=== PATIENT | female | born 1935 | race Caucasian/White ===

== ENCOUNTER → 2017-12-26 10:19 | Outpatient (CLI) | payer MEDICARE, SELFPAY ==
--- NOTE | 2017-12-26 10:25 | HPBI_ITS ---
MAMMOGRAPHY - BILATERAL SCREENING REASON FOR EXAM: Female, 82 years old. Routine annual screening examination. PERTINENT HISTORY: Non-contributory. TECHNIQUE: Digital bilateral breast cyril (3D mammographic acquisition) in the CC and MLO projections. 2-D mediolateral oblique (MLO) and craniocaudad (CC) views of both breasts were obtained. CAD: Full Field Digital Mammography with Computer Added Detection was performed. COMPARISON: Comparison is made with prior examination dated June 12, 2016 and April 18, 2015. FINDINGS: Breast Composition: The breasts are almost entirely fatty. There are no dominant masses or suspicious calcifications. Stable scattered bilateral calcifications. No other significant abnormalities are identified. There has been no significant change since the prior study. HPBI/SCREENING MAMM (CAD), BILAT IMPRESSION: Stable bilateral screening mammogram. Yearly follow-up mammogram recommended. (A) ASSESSMENT CATEGORY: BIRADS Category 2: Benign. A letter regarding these results will be sent to the patient by the facility within 30 days. Approximately 10% of breast cancers are not detected by mammography. A normal mammogram should not delay biopsy of a clinically suspicious abnormality. [id number] Electronically Signed: Ranjit Campbell MD at 10:20 EDT Tel [phone], Service support ,
== END ==
PROVIDERS: Family Provider Internal Medicine; PCP Internal Medicine; Visit Provider Internal Medicine
DX: Z12.31 Encounter for screening mammogram for malignant neoplasm of breast (principal)
CPT/HCPCS: 77063; 77067; J2405

== ENCOUNTER → 2018-07-29 13:10 | Outpatient (CLI) | payer MEDICARE, SELFPAY ==
--- NOTE | 2018-07-29 | MISC_PTH ---
PATIENT: NICKI VELAZCO [id number] AGE/SX: 89/F ROOM: RE07/29/[address]: Dr. Pancho Boudreaux DDS : 1935 BED: DIS: SPEC #: [id number] RECD: 07/29/18 13:27 STATUS: VERONICA SANJAY #: [id number] BLANCA: 07/29/18 00:[address]: Pancho Boudreaux DEPT: SURGICAL PATHOLOGY RECD BY: Dixon Knapp ENTERED: 07/29/18 13:28 SP TYPE: MISC DOMENICA DR: Dr. Kallie Osei, DO Tissues: Oral soft tissues, NOS Procedures: Special Stain Group I Surgery Specimen Level IV GMS Stain (control) HEADER OPERATION: Gingiva biopsy PRE-OP DIAGNOSIS: Not noted TISSUE SUBMITTED: Gingiva MICROSCOPIC DIAGNOSIS Gingiva, biopsy: A piece of squamous mucosa with chronic inflammation and pseudoepitheliomatous hyperplasia. Negative for malignancy. Special stain for fungi is negative for organisms; matched control is appropriate. SINDHU:francisco 07/30/18 COMMENT The specimen also shows a minute piece of bone and also focal actinomyces colonization. MICROSCOPIC DESCRIPTION Slides are reviewed. GROSS DESCRIPTION Received in fixative is one container labeled with the patient's name and designated gingiva. The specimen consists of one irregular fragment of ta mucosal tissue that measures 0.4 x 0.4 x 0.2 cm. The specimen is totally submitted in one cassette. / SINDHU:francisco 07/29/18 TC:3 CPT: 22685, 71350
== END ==
PROVIDERS: Family Provider Internal Medicine; PCP Internal Medicine; Referring Provider Dentist Oral and Maxillofacial Surgery; Visit Provider Dentist Oral and Maxillofacial Surgery
DX: K05.10 Chronic gingivitis, plaque induced (principal)
CPT/HCPCS: 88305; 88312

== ENCOUNTER → 2019-11-16 | Outpatient (CLI) | payer MEDICARE, SELFPAY ==
[2019-11-16 12:01] VITALS: BMI 27.6
== END | disposition home or self-care (01) ==
PROVIDERS: PCP Internal Medicine; Referring Provider Nurse Practitioner Women's Health; Visit Provider Nurse Practitioner Women's Health
DX: N76.0 Acute vaginitis (principal)
CPT/HCPCS: 87070; 87205

== ENCOUNTER 2020-03-22 07:01 | Day surgery (SDC) | payer MEDICARE, SELFPAY ==
[2019-11-16 12:01] VITALS: BMI 27.6
--- NOTE | 2020-03-21 10:18 | EKG12_ITS ---
Test Reason : PRE-OP Blood Pressure : / mmHG Vent. Rate : 062 BPM Atrial Rate : 062 BPM P-R Int : 176 ms QRS Dur : 080 ms QT Int : 378 ms P-R-T Axes : 039 -16 033 degrees QTc Int : 383 ms Normal sinus rhythm Septal infarct , age undetermined Inferior infarct , age undetermined Abnormal ECG Confirmed by TRINY GUZMAN, LISE ([id number]), editor & co founder GALA LUA ([id number]) on 03/22/2020 10:08:56 AM Referred By: Madgalene Stewart Confirmed By:LISE AGOSTO MD
[2020-03-21 11:35] LABS: Anion Gap 5 (5-15); BUN 26 mg/dL (7-18); BUN/Creat Ratio 26.6 RATIO (10-20); Calcium,Total 9.6 mg/dL (8.5-10.1); Chloride 106 mmol/L (98-107); Creatinine, Serum 0.98 mg/dL (0.55-1.02); EST Glomerular Filtration Rate 58 mL/min (>60); Est Glom Filt Rate - Afr Amer 70 mL/min (>60); Glucose 91 mg/dL (74-106); Potassium 4.4 mmol/L (3.5-5.1); Sodium Level 139 mmol/L (136-145)
[2020-03-21 11:41] LABS: Hemoglobin 14.8 g/dL (12.0-15.0); Mean Corp Hgb Conc 32.9 g/dL (32-36); Mean Corpuscular Hgb 35.5 pg (27.0-32.0); Mean Corpuscular Volume 107.9 fL (81-99); Mean Platelet Vol. 9.4 fl (6.2-12.0); Platelet Count 270 K/mm3 (150-450); RBC Distribution Width CV 12.7 % (11.6-14.6); RBC Distribution Width SD 50.4 fl (35.1-43.9); Red Blood Count 4.17 M/mm3 (4.2-5.4); White Blood Count 7.5 K/mm3 (4.4-11.0)
[2020-03-22] VITALS (10 sets, daily range): BP systolic 104–133; BP diastolic 57–73; PULSE 51–59; RESP 16; TEMP 35.9–36.5; O2SAT 92–99; BMI 28.0
[2020-03-22] MEDS: Lactated Ringers 1,000 ML 100 ML IV ×2 (07:32→10:40)
[2020-03-22] MEDS: Ciprofloxacin 400 MG/200 ML BAG 200 MG IV (07:32)
[2020-03-22] MEDS: Lubricating Jelly 60 GM Tube 30 GM TOPICAL (08:20)
--- NOTE | 2020-03-22 08:47 | PCM.HP.STD ---
Problem List (1) Erythematous bladder mucosa Status: Acute (2) Urinary tract infection Status: Acute History of Present Illness Date of Admission: 03/22/20 Chief Complaint: urinary tract infection, red bladder The patient is a 84 year old F who was found to have erythematous bladder mucosa on office cystoscopy as part of evaluation for urinary tract infections and incontinence. She now presents for definitive evaluation with bladder biopsy. The risks were discussed, including that of COVID-19. She understands and desires to proceed. Past Medical History Past Medical History (Chronic Problems): Chronic Problems (Last Reviewed 11/16/19 @ 11:43 by Agatha Ji) Fecal incontinence (Chronic) mild 1x monthly Incomplete uterovaginal prolapse (Chronic) size ring with support pessary Medical History: Medical History (Last Reviewed 03/22/20 @ 08:[address] Magdalene Stewart MD) CVA (cerebral vascular accident) I63.9 Allergies cephalexin [From Keflex] Adverse Reaction (Verified 03/22/20 07:13) PT UNSURE OF REACTION codeine Adverse Reaction (Verified 03/22/20 07:13) PT UNSURE OF REACTION morphine Adverse Reaction (Verified 03/22/20 07:13) PT UNSURE OF REACTION states I can't tolerate Home Medications: Ambulatory Orders Medication Instructions Recorded simvastatin 5 mg tablet 5 mg PO QHS 12/29/18 estradiol See Rx Instructions VAGINAL 11/29/19 .COMPLEX #42.5 g Aspirin/Dipyridamole 1 ea PO BID 03/17/20 [Aspirin-Dipyridam ER 25-200 mg] Cholecalciferol (VIT D3) [Vitamin 1,000 unit PO BID 03/17/20 D] Gluc Alcantara/Chondro Alcantara A/Vit C/Mn 1 ea PO BID 03/17/20 [Glucosamine Chondroitin Tab] Multivit-Min/Folic Acid/Biotin 1 ea PO DAILY 03/17/20 [Hair, Skin & Nails Caplet] Multivitamin/Iron/Folic Acid 1 ea PO DAILY 03/17/20 [Centrum Adults Tablet] Eden-3 Fatty Acids/Fish Oil [Fish 1 ea PO DAILY 03/17/20 Oil 1,000 mg Capsule] Surgical History: Surgical History (Last Reviewed 03/22/20 @ 08:[address] Magdalene Stewart MD) History of surgery on arm Z98.890 Smoking Status: Never smoker Tobacco Use: Non-smoker Review of Systems Constitutional: Denies: Anorexia, Chills, Fever Eyes: Denies: Vision Change HEENT: Denies: Visual Changes Cardiovascular: Denies: Chest Pain, Chest Pressure Respiratory: Denies: Cough, Shortness of Breath, Wheezing Gastrointestinal: Denies: Abdominal Pain, Nausea, Vomiting Genitourinary: Reports: Dysuria, Frequency, Incontinence, Urgency Gynecological: Denies: Vaginal bleeding Musculoskeletal: Denies: Muscle pain Skin: Denies: Wounds Neurological: Denies: Difficulty swallowing Endocrine: Denies: Change in Body Habitus VTE Information - Inpt Only VTE Present on Admission: Yes VTE Mechan Device Prophylaxis: SCD's VTE Pharm Prophylaxis ordered?: No Reason prophylaxis not ordered:: Treatment Not Indicated - she will restart her anticoagulation today. Patient Problems: Active and Suspected Problems (Last Reviewed 11/16/19 @ 11:43 by Agatha Ji) Erythematous bladder mucosa (Acute) Urinary tract infection (Acute) - Physical Exam Vitals/I&O's: Vital Signs Temp Pulse Resp BP Pulse Ox 97.5 F L 56 L 16 124/72 H 99 03/22/20 07:25 03/22/20 07:25 03/22/20 07:25 03/22/20 07:25 03/22/20 07:25 Oxygen Delivery Method Room Air Weight: 74.1 kg Body Mass Index (BMI) 28.0 General: Alert, Cooperative, No apparent distress HEENT: Atraumatic, Normocephalic Oral: Moist Mucosa Neck: Supple, Trachea Midline Lungs: Normal air movement Cardiovascular: Regular rate, Regular Rhythm Abdomen: Soft, Non Tender, Non-Distended Extremities: No cyanosis Skin: No rashes Musculoskeletal: No Muscle Wasting Neurological: Cranial nerves II-XII grossly intact, Neuro grossly intact Psych/Mental Status: Normal Affect Laboratory Results 03/21/20 10:08: WBC 7.5, RBC 4.17 L, Hgb 14.8, Hct 45.0, MCV 107.9 H, MCH 35.5 H, MCHC 32.9, RDW Std Deviation 50.4 H, RDW Coeff of Edda 12.7, Plt Count 270, MPV 9.4 03/21/20 10:08: Sodium 139, Potassium 4.4, Chloride 106, Carbon Dioxide 28.0, Anion Gap 5, BUN 26 H, Creatinine 0.98, Est GFR (MDRD) Af Amer 70, Est GFR (MDRD) Non-Af 58 L, BUN/Creatinine Ratio 26.6 H, Glucose 91, Calcium 9.6 03/21/20 10:50: COVID-19 (MARY) Not Detected Current Medications Lactated Ringer's () 1,000 mls @ 100 mls/hr IV .Q10H HAIDER Last Admin: 03/22/20 07:32 Dose: 100 mls/hr Documented by: Assessment/Plan All Active Problems (Last Reviewed 11/16/19 @ 11:43 by Agatha Ji) Erythematous bladder mucosa (Acute) Urinary tract infection (Acute) cystoscopy with bladder biopsy and fulguration Procedure Criteria Procedure Type: Elective Procedure Essential: Yes Criteria Statement: On 12/29/2019 the [facility] ([facility]) Public Order signed by [facility] Director Anel Falcon M.D., regarding the Management of Non-Essential Surgeries and Procedures for the purpose of preserving Personal Protective Equipment (PPE) and critical hospital capacity and resources within [place] went into effect as of 12/30/2019 at 5:00PM. According to the [facility] Public Order: This action will remain in full force and effect until the State of Emergency declared by the Governor no longer exists or the Director of the [facility] rescinds or modifies this Order. This [facility] order stated all non-essential or elective surgeries and procedures that utilize PPE should be delayed unless there is undue risk to the current or future health of a patient. After reviewing the aforementioned [facility] Public Order and the patient's clinical case, I have determined that the scheduled procedure meets the criteria to go forward. Risk to Patient if Procedure Delayed: Risk of rapidly worsening to severe symptoms if delayed - possible malignancy bladder COVID Risk Discussion: The surgeon/proceduralist and patient have discussed in detail the risk of exposure to and/or potential harm posed by the COVID-19 virus with having a surgery/procedure at this time versus the risk of delaying the surgery/procedure. It is not possible to know either the risk of delaying the surgery or procedure or chance of getting an infection with perfect accuracy, but a joint decision was made between the patient and the surgeon/proceduralist to proceed at this time with the scheduled surgery/procedure as indicated on the consent form.
--- NOTE | 2020-03-22 08:50 | BLA_PTH ---
PATIENT: NICKI VELAZCO [place] [facility] [id number] AGE/SX: 84/F ROOM: RE03/22/[address]: Dr. Magdalene Stewart MD : 1935 BED: DIS: 03/22/2020 SPEC #: [id number] RECD: 03/22/20 09:52 STATUS: VERONICA SANJAY #: [id number] BLANCA: 03/22/20 08:[address]: Magdalene Stewart DEPT: SURGICAL PATHOLOGY RECD BY: Mata Christy ENTERED: 03/22/20 10:43 SP TYPE: BLADDER BX OTHR DR: Dr. Kallie Osei DO Tissues: Urinary bladder, NOS Procedures: Surgery Specimen Level IV HEADER OPERATION: Cysto, bladder biopsy with fulguration PRE-OP DIAGNOSIS: Dysuria, urgency, urge incontinence TISSUE SUBMITTED: Bladder biopsy MICROSCOPIC DIAGNOSIS Bladder, biopsy: Fragments of urothelial mucosa with marked acute and chronic inflammation and granulation tissue reaction. Reactive epithelial changes. Negative for malignancy. See comment. SINDHU:francisco 03/23/20 COMMENT A few fragments of smooth muscle is noted, favor muscularis mucosa fragments. Definite detrusor muscle is not seen in the submitted specimen. Epithelium is denuded in the most of the specimen. Correlation with clinical, cystoscopy findings and appropriate follow up are necessary. MICROSCOPIC DESCRIPTION Slides are reviewed. GROSS DESCRIPTION Received in fixative is one container labeled with the patient's name and designated bladder biopsy. The specimen consists of multiple minute fragments of ta-pink soft tissue that in aggregate measure 0.5 x 0.1 x 0.1 cm. The specimen is totally submitted in one cassette. / SINDHU:francisco 03/22/20 TC:2 CPT: 88556
--- NOTE | 2020-03-22 08:55 | PCM.DC.URO ---
Discharge Diet: No Restrictions Discharge Activity: May not drive while taking narcotic pain medications. May resume sexual activity in: 1 week Call your doctor if you observe: Fever of 101 or Higher, Inability to urinate, Inability to have a bowel movement Additional Instructions: restart anticoagulation today. complete bactrim course. ok to take tylenol or ibuprofen for pain. Percocet 4 tablets to take if needed. Allergies/Adverse Reactions: Allergies cephalexin [From Keflex] Adverse Reaction (Verified 03/22/20 07:13) PT UNSURE OF REACTION codeine Adverse Reaction (Verified 03/22/20 07:13) PT UNSURE OF REACTION morphine Adverse Reaction (Verified 03/22/20 07:13) PT UNSURE OF REACTION states I can't tolerate Medications to take at Discharge simvastatin 5 mg tablet 5 mg PO QHS 12/29/18 estradiol See Rx Instructions VAGINAL .COMPLEX #42.5 g 11/29/19 Aspirin/Dipyridamole [Aspirin-Dipyridam ER 25-200 mg] 1 ea PO BID 03/17/20 Cholecalciferol (VIT D3) [Vitamin D3] 1,000 unit PO BID 03/17/20 Gluc Alcantara/Chondro Alcantara A/Vit C/Mn [Glucosamine Chondroitin Tab] 1 ea PO BID 03/17/20 Multivit-Min/Folic Acid/Biotin [Hair, Skin and Nails Caplet] 1 ea PO DAILY 03/17/20 Multivitamin/Iron/Folic Acid [Centrum Adults Tablet] 1 ea PO DAILY 03/17/20 Filion-3 Fatty Acids/Fish Oil [Fish Oil 1,000 mg Capsule] 1 ea PO DAILY 03/17/20 Oxycodone HCl/Acetaminophen [Percocet 5/325] 1 tablet PO Q8H PRN PRN 2 Days #4 tablet 03/22/20 The following prescriptions were given: Oxycodone HCl/Acetaminophen [Percocet 5/325] 1 tablet PO Q8H PRN PRN 2 Days #4 tablet PRN Reason: Pain Transmission Status: Sent to [facility] Primary Care Physician: Kallie Osei DO [Primary Care Provider] - Test Results: Test results from this visit will be discussed in further detail at your follow-up appointment, if applicable. Please Follow Up With: Magdalene Stewart MD When: call for appt to be seen next week. Proposed Discharge Date: 03/22/20
--- NOTE | 2020-03-22 08:58 | OP.PCM_ITS ---
Problem List (1) Erythematous bladder mucosa Status: Acute (2) Urinary tract infection Status: Acute Report of Operation Date of Procedure: 03/22/20 Pre-Operative Diagnosis: Erythema of the bladder mucosa, recurrent urinary tract infections, incontinence Post-Operative Diagnosis: Same Surgery/Procedure Performed:: Cystoscopy with bladder biopsy and fulguration Type of Anesthesia:: General Specimen's removed: Bladder biopsy x3 Description of Procedure: The patient is an 84-year-old female seen in the office for recurrent urinary tract infections, incontinence and was evaluated with a cystoscopy. The cystoscopy in the office showed diffuse erythematous bladder wall. Risks benefits and alternatives were discussed and the patient agreed to proceed with biopsy under anesthesia. COVID-19 risks were discussed as well. The patient understood and decided to proceed. The patient was taken to the operating room and placed on the operating room table. Anesthesia monitored the head, neck, airway, IV access and vital signs throughout the case. Once anesthesia was administered the patient was placed into dorsal lithotomy position and was prepped and draped in usual sterile fashion. A cystourethroscopy was then performed through the urethra. The bladder mucosa remains erythematous as seen in the office. Bilateral ureteral orifices were located on the area of the trigone in correct anatomic position. There were no masses identified and no foreign bodies. There is no trabeculat ion identified. Three biopsies were taken from the posterior bladder wall and these areas were fulgurated for hemostatic control. The patient's bladder was then emptied and the case was terminated. The patient tolerated the procedure well without complication. - Complications None - Admit VTE Documentation VTE Present on Admission: Yes VTE Mechan Device Prophylaxis: SCD's VTE Pharm Prophylaxis ordered?: No Reason prophylaxis not ordered:: Treatment Not Indicated
== END 2020-03-22 11:49 | disposition home or self-care (01) ==
LOC: SDC 07:08 → AC 07:08
PROVIDERS: Anesthesiology; PCP Internal Medicine; Referring Provider Urology; Visit Provider Urology
PROC: 0TBB8ZX Excision of Bladder, Via Natural or Artificial Opening Endoscopic, Diagnostic (ICD-10-PCS; CPT 52204; principal; 2020-03-22 08:40)
DX: N32.89 Other specified disorders of bladder (principal); N39.0 Urinary tract infection, site not specified; E78.00 Pure hypercholesterolemia, unspecified; R15.9 Full incontinence of feces; Z88.5 Allergy status to narcotic agent; Z88.1 Allergy status to other antibiotic agents; Z87.440 Personal history of urinary (tract) infections; Z79.82 Long term (current) use of aspirin; Z11.59 Encounter for screening for other viral diseases; Z86.73 Personal history of transient ischemic attack (TIA), and cerebral infarction without residual deficits
CPT/HCPCS: 00910; 52204; 36415; 80048; 85027; 87635; 88305; 93005; G2023; J7120; J0744; J2405; U0003